=== PATIENT | female | born 1960 | race Caucasian/White ===

== ENCOUNTER → 2017-01-01 | Outpatient (CLI) | payer OTHER ==
--- NOTE | 2017-01-01 14:40 | PCVCIMAG ---
APPROVED REPORT Exam: Stress Echocardiogram Indication: Chest pain, strong family history,fatigue Patient Location: Echo lab Stress Nurse: Monika Ozuna RN Room #: 2 Status: routine Ht: 5 ft 1 in HR: 57 bpm BP: 136/92 mmHg Rhythm: NSR Medical History Medical History: Hyperlipidemia, Tobacco history (Former) Cardiac Risk Factors: Tobacco History (Former), FHX of CAD Previous Cardiac Procedures: none Exercise History: Indeterminate Procedure The patient underwent an Exercise Stress Test using the Shawn Protocol. Blood pressure, heart rate, and EKG were monitored. An Echocardiogram was performed by document management technician in four stages in quad fashion. At peak stress, four selected images were obtained and placed side by side with resting images for comparison. Stress Test Details Stress Test: Exercise stress testing was performed using a Shawn protocol. HR Resting HR: 57 bpmMax Heart Rate (APMHR): 164 bpm Max HR Achieved: 162 bpmTarget HR (85% APMHR): 139 bpm % of APMHR: 98 Recovery HR: 77 bpm HR response to stress: Normal HR response to stress BP Resting BP: 136/92 mmHg Max BP: 196/70 mmHg Recovery BP: 142/70 mmHg ECG Resting ECG: Sinus Bradycardia Stress ECG: Sinus Rhythm ST Change: Eqivocally ischemic Maximum ST Deviation: 1.55 mm Arrhythmia: rare PVCs Recovery ECG: Sinus Rhythm Recovery ST Change: Non-ischemic Recovery ST Deviation: 0.55 mm Recovery Arrhythmia: None Clinical Reason for Termination: Maximal effort Stress Symptoms: mild tightness upper l shoulder-neck area, unchanged with exercise Exercise duration: 9 min 31 sec Highest Stage Achieved: Stage 4: 4.2 mph at 16% grade. Exercise capacity: 11.6 METs Overall Exercise Capacity for Age: Normal Angina Score: None Stress ECG Conclusion The patient exercised according to the Shawn Protocol for 9:31 minutes, achieving a maximum work level of 11.6 METS. The resting heart rate of 57 bpm, siva to a maximal level of 162 bpm. This value represents 98 % of the maximal, age-predicted heart rate. The resting blood pressure of 136/92 mmHg, siva to a maximum blood pressure of 196/70 mmHg. The exercise was stopped due to maximal effort and fatigue. Ann Treadmill Score is 1.3 which is Moderate risk. Pre-Stress Echo The resting Echocardiogram showed normal left ventricular contractility with an estimated Ejection Fraction of about >55%. Normal wall motion in all segments on baseline images. Post-Stress Echo The stress Echocardiogram showed normal left ventricular contractility with an estimated Ejection Fraction of about 65-70%. Normal augmentation of wall motion in all segments on post stress images. Clinical No clinical or ECG evidence for ischemia. Conclusion Clinical Response: Non-ischemic Exercise Capacity: Superior Stress ECG Response: Equivocal Stress Echo Images: Non-ischemic No clinical, EKG or echocardiographic evidence for ischemia. No echocardiographic evidence for exercise induced ischemia. Normal stress echocardiogram with maximal exercise stress. No prior study available for comparison. <Conclusion> No clinical, EKG or echocardiographic evidence for ischemia. No echocardiographic evidence for exercise induced ischemia. Normal stress echocardiogram with maximal exercise stress.
== END | disposition home or self-care (01) ==
LOC: PCVCIMAG 11:05
PROVIDERS: ATTEND Internal Medicine Cardiovascular Disease
DX: R07.9 Chest pain, unspecified (principal); E78.5 Hyperlipidemia, unspecified; Z87.891 Personal history of nicotine dependence
CPT/HCPCS: 93325; 93351